=== PATIENT | female | born 1950 | race Two or more races ===

== ENCOUNTER 2023-07-01 10:42 | Outpatient (AMB) | payer MEDICARE, SELFPAY ==
--- NOTE | 2023-07-01 10:52 | A.OFFVIS_ITS ---
Intake Vital Signs 07/01/23 10:57 Height 5 ft 8 in Weight 201 lb 0.985 oz BMI 30.6 BP 138/82 Blood Pressure Location Lt brachial Position Sitting Pulse 84 Pulse Source Pulse Oximeter Pulse Oximetry (%) 98 Oxygen Delivery Method Room Air Intake Visit Reasons: Polymyalgia rheumatica/CM Intake Note: New patient presents today for PMR consult. Previously seen by Dr Miramontes at [facility]. Reports flare approx 4 months ago, which resolved on its own. 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 Apparently patient was diagnosed with PMR around 2016, she was evaluated by special education associate Dr. Miramontes and she was started on a Medrol taper. It took about 2 years for prednisone to be tapered off completely. 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 According to Dr. Miramontes's notes, patient was also briefly on methotrexate and apparently she had shingles at the time. Hydroxychloroquine was also tried but patient has no recollection of taking either. She stated that about 4 months ago she started to have symptoms similar to the initial symptoms of PMR that she had in 2016 but symptoms were less severe and she was having morning stiffness and pain of her shoulders and thighs. Her inflammatory markers were normal and patient did not take steroids. Symptoms lasted for about 2 months and self-resolved She has no complaints today She denies any fevers, weight changes, denies any skin rash. No history of DVT/PE. She is unaware of any family history of an autoimmune rheumatic disease [facility] Medical History (Updated 07/01/23 @ 11:30 by Adarsh Garcia MD) Pain in joint, multiple sites GERD (gastroesophageal reflux disease) Chronic interstitial cystitis Osteopenia Polymyalgia rheumatica Surgical History History of total right knee replacement (TKR) Family History Mother CHF (congestive heart failure) Hypertension Diabetes Myocardial infarction Coronary arteriosclerosis Arthritis Father CHF (congestive heart failure) Hypertension Myocardial infarction Malignant lymphoma Social History Alcohol intake: current Alcohol intake frequency: a few times a month Alcohol type: wine Patient Tobacco Use Status: Former Tobacco user Current occupational status: retired 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 Female Reproductive History Menstrual Total pregnancies: 0 Review of Systems Const Denies fever(s) and Denies weight loss GI Reports no additional complaints Musc Denies arthralgias, Denies joint swelling and Denies stiffness Skin/Breast Denies rash Physical Exam Vital Signs: Last Vital Signs Pulse 84 07/01/23 10:57 BP 138/82 07/01/23 10:57 Pulse Ox 98 07/01/23 10:57 Oxygen Delivery Method Room Air 07/01/23 10:57 BMI result Body Mass Index 30.6 Const General: cooperative, healthy appearing and comfortable Nutritional Appearance: overweight Orientation/consciousness: patient oriented x3 Limitations: no limitations HEENT Head: Yes normocephalic and Yes atraumatic Mouth: moist mucous membranes Resp Effort & Inspection: normal respiratory effort and able to speak in complete sentences Auscultation: clear to auscultation bilaterally Cardio Rate: regular rate Rhythm: regular rhythm Skin General skin exam: no rashes or lesions noted Neuro General: patient oriented x3 Extrem Other: Osteoarthritic changes of both hands with no active synovitis Normal nailfold capillaroscopy Normal range of motion of shoulders, elbows without pain Negative straight leg raise test bilaterally No hip pain with manipulation Proximal muscle strength 5/5 all 4 extremities Assessment & Plan Assessment & Plan (1) Polymyalgia rheumatica: Comment: onset 2018 treated with medrol tapered off 2018 MTX briefly 2018 DC due to shingles HCQ briefly Code(s): M35.3 - Polymyalgia rheumatica Plan: This is a 73-year-old female with history of PMR who presents for evaluation. She used to see Dr. Miramontes. She was diagnosed with PMR in 2018, she had high inflammatory markers at that time, she was treated with steroids, steroids were tapered off in 2016. There was an attempt to add DMARDs (MTX and HCQ) in an attempt to lower prednisone dose in 2018, it is unclear exactly what happened. Patient has no recollection of it Today patient states that she had similar symptoms of PMR about 4 months ago that self resolved in about 2 months. Her inflammatory markers were normal around that time. No steroids were used. Upon evaluation today. I do not see any signs suggestive of an autoimmune rheumatic disease. Will continue to monitor patient clinically. Follow-up in 6 months. Patient can call and make an appointment if she has a flare-up Plan I spent 30 minutes reviewing patient's chart, evaluating patient, counseling patient and documenting in the chart Coding Level of Care Code Tele New Pt Level 3 (99472) Diagnoses Polymyalgia rheumatica M35.3
[2023-07-01 10:57] VITALS: BP 138/82; PULSE 84; O2SAT 98; BMI 30.6
== END 2023-07-01 11:25 | disposition home or self-care (01) ==
PROVIDERS: PCP Family Medicine; Visit Provider Student in an Organized Health Care Education/Training Program
DX: M35.3 Polymyalgia rheumatica (principal)
CPT/HCPCS: 99203

== ENCOUNTER → 2023-07-01 10:42 | Outpatient (BNVA) | payer MEDICARE, SELFPAY | PROVIDERS: PCP Family Medicine; Visit Provider Student in an Organized Health Care Education/Training Program ==